=== PATIENT | female | born 1950 | race Asian ===

== ENCOUNTER 2017-02-03 11:04 | Emergency (ER) | payer BC ==
[~2017-02-03] VITALS: Wt 52.5 kg
[~2017-02-03 11:04] MED LIST: IBUPROFEN; XANAX
[2017-02-03] MEDS ORDERED: LIDOCAINE/MYLANTA 40 ML BTL PO STA (11:18)
[2017-02-03] MEDS ORDERED: ASPIRIN 325 MG TAB PO STA (11:18)
[2017-02-03] MEDS ORDERED: ONDANSETRON 4 MG INJ IV STA (11:25)
[2017-02-03 11:46] LABS: BASOPHILS % 0.7 % (0.0-2.0); EOSINOPHILS % 0.7 % (0.0-7.0); HEMATOCRIT 39.9 % (37.0-47.0); HEMOGLOBIN 13.8 g/dl (12.0-16.0); LYMPHOCYTES # 1.3 10^3/ul (0.8-2.9); LYMPHOCYTES % 28.3 % (15.0-51.0); MEAN CORPUSCULAR HEMOGLOBIN 30.9 pg (29.0-33.0); MEAN CORPUSCULAR HGB CONC 34.6 g/dl (32.0-37.0); MEAN CORPUSCULAR VOLUME 89.5 fl (82.0-101.0); MEAN PLATELET VOLUME 9.9 fl (7.4-10.4); MONOCYTE # 0.2 10^3/ul (0.3-0.9); MONOCYTES % 5.1 % (0.0-11.0); NEUTROPHIL # 2.9 10^3/ul (1.6-7.5); PLATELET COUNT 214 10^3/UL (140-415); RED BLOOD COUNT 4.46 10^6/ul (4.20-5.40); RED CELL DISTRIBUTION WIDTH 11.7 % (11.5-14.5); WHITE BLOOD COUNT 4.5 10^3/ul (4.8-10.8)
--- NOTE | 2017-02-03 11:47 | RADRPT ---
PROCEDURE: XR Chest. CLINICAL INDICATION: Chest pain. TECHNIQUE: Single frontal view of the chest was obtained. COMPARISON: None FINDINGS: Monitoring electrodes are projecting across the chest. There are degenerative osteophytes in the th oracic spine. The heart is enlarged. The cardiomediastinal silhouette and hilar structures are nor mal. The pulmonary vasculature is normal. There is a left-sided aorta. There is a plate-like densit y in the left mid lung field. No acute infiltrate is identified. The costophrenic angles are corinna l. IMPRESSION: 1. Plate-like atelectasis or scarring lateral to the left hilum. 2. Cardiomegaly. 3. Spondylosis of the thoracic spine. RPTAT:AAJJ Physician Trinh Date Time Electronically viewed and signed by Rakesh Lockwood Physician on 02/03/2017 11:47 LAURA/
--- NOTE | 2017-02-03 11:50 | ERD ---
ER Documentation Chief Complaint Date/Time DATE: 02/03/17 TIME: 11:48 Chief Complaint INTERMITTENT CHEST PAIN FOR FEW MONTHS. NO SOB. NO N.V HPI This 66-year-old female presents to the ER stating she has had left-sided chest pain for the last few months. It is a sharp pain. She denies shortness of breath nausea and vomiting. There is no radiation of the pain. ROS All systems reviewed and are negative except as per history of present illness. Medications Home Meds Reported Medications [Ibuprofen] No Conflict Check 09/08/10 [Xanax] No Conflict Check 09/08/10 Allergies Allergies: Coded Allergies: No Known Allergy (Verified Allergy, Mild, 09/08/10) PMhx/Soc History of Surgery: No Anesthesia Reaction: No Hx Neurological Disorder: Yes (ANXIETY) Hx Respiratory Disorders: No Hx Cardiac Disorders: No Hx Psychiatric Problems: No Hx Miscellaneous Medical Probl: No Hx Alcohol Use: No Hx Substance Use: No Hx Tobacco Use: No Smoking Status: Never smoker Physical Exam Vitals Vital Signs Date Time Temp Pulse Resp B/P Pulse Ox O2 Delivery O2 Flow Rate FiO2 02/03/17 11:36 56 18 128/75 99 Room Air 02/03/17 11:06 98.6 64 20 128/74 99 Physical Exam Const: [] No distress Head: Atraumatic Eyes: Normal Conjunctiva ENT: Normal External Ears, Nose and Mouth. Neck: Full range of motion..~ No meningismus. Resp: Clear to auscultation bilaterally Cardio: Regular mild bradycardia, no murmurs Abd: Soft, non tender, non distended. Normal bowel sounds Skin: No petechiae or rashes Ext: No cyanosis, or edema Neur: Awake and alert Psych: Normal Mood and Affect Result Diagram: 02/03/17 1130 02/03/17 1130 Results 24 hrs Laboratory Tests Test 02/03/17 11:30 White Blood Count 4.510^3/ul Red Blood Count 4.4610^6/ul Hemoglobin 13.8g/dl Hematocrit 39.9% Mean Corpuscular Volume 89.5fl Mean Corpuscular Hemoglobin 30.9pg Mean Corpuscular Hemoglobin Concent 34.6g/dl Red Cell Distribution Width 11.7% Platelet Count 61529^3/UL Mean Platelet Volume 9.9fl Neutrophils % 65.0% Lymphocytes % 28.3% Monocytes % 5.1% Eosinophils % 0.7% Basophils % 0.7% Nucleated Red Blood Cells % 0.0/100WBC Neutrophils # 2.910^3/ul Lymphocytes # 1.310^3/ul Monocytes # 0.210^3/ul Eosinophils # 0.010^3/ul Basophils # 0.010^3/ul Nucleated Red Blood Cells # 0.010^3/ul Prothrombin Time 12.4Sec Prothrombin Time Ratio 1.0 INR International Normalized Ratio 0.92 Activated Partial Thromboplast Time 27.7Sec Sodium Level 144mmol/L Potassium Level 4.0mmol/L Chloride Level 102mmol/L Carbon Dioxide Level 28mmol/L Anion Gap 18 Blood Urea Nitrogen 13mg/dl Creatinine 0.67mg/dl Glucose Level 88mg/dl Calcium Level 9.1mg/dl Troponin I < 0.012ng/ml Current Medications Medications (Trade) Dose Ordered Sig/Trevor Route PRN Reason Start Time Stop Time Status Last Admin Dose Admin Aspirin (Aspirin) 325 mg ONCE STAT PO 02/03/17 11:18 02/03/17 11:19 DC 02/03/17 11:44 Miscellaneous Medication (Gi Cocktail (2)) 40 ml ONCE STAT PO 02/03/17 11:18 02/03/17 11:19 DC 02/03/17 11:44 Ondansetron HCl (Zofran Inj) 4 mg ONCE STAT IV 02/03/17 11:25 02/03/17 11:26 DC 02/03/17 11:44 Ketorolac Tromethamine (Toradol) 30 mg ONCE STAT IV 02/03/17 12:21 02/03/17 12:24 DC Procedures/MDM Atypical chest pain and 66-year-old female with no signs of cardiac ischemia. During the course she did mention that she also has a right upper neck muscle spasm is been going on for some time. She is initially given a GI cocktail which did decrease her chest pain somewhat. She was then given Toradol which further alleviated the pain. Is possibly a musculoskeletal cause. She was also given 325 mg aspirin. Going to discharge her with instructions to follow- up with primary care doctor in obtain an outpatient echocardiogram. I am discharging her with Zantac and naproxen. Return precautions to ER. quality assurance monitor interpretation: Normal sinus rhythm/sinus bradycardia without arrhythmia EKG interpretation: Sinus bradycardia rate of 58, indeterminate axis, no ST or T -wave changes concerning for acute ischemia. Chest x-ray interpretation: I see no acute process. I see no pneumothorax, no fractures, no pulmonary edema, no infiltrates. Departure Diagnosis: Primary Impression: Chest pain Additional Impression: Neck muscle spasm Condition: Stable MARIN CURIEL DO Feb 03, 2017 11:50
[2017-02-03 12:07] LABS: ANION GAP 18 (8-16); BLOOD UREA NITROGEN 13 mg/dl (7-20); CALCIUM 9.1 mg/dl (8.4-10.2); CARBON DIOXIDE 28 mmol/L (21-31); CHLORIDE 102 mmol/L (97-110); CREATININE 0.67 mg/dl (0.44-1.00); GLUCOSE 88 mg/dl (70-220); SODIUM 144 mmol/L (135-144)
[2017-02-03 12:09] LABS: INR 0.92; PROTIME 12.4 Sec (12.2-14.2)
[2017-02-03 12:10] LABS: PARTIAL THROMBOPLASTIN TIME 27.7 Sec (25.0-35.0)
[2017-02-03 12:21] LABS: TROPONIN-I < 0.012 ng/ml (0.00-0.12)
[2017-02-03] MEDS ORDERED: KETOROLAC 30 MG INJ IV STA (12:21)
[2017-02-03] MEDS ORDERED: RANI150T9 PO (12:50)
[2017-02-03] MEDS ORDERED: NAPR-685 PO (12:50)
[2017-02-03] MEDS ORDERED: POLY17PO6 PO (13:27)
[2017-02-03] MEDS ORDERED: DIAZ-90 PO (13:33)
[2017-02-03 13:36] VITALS: BP 136/75; PULSE 55; RESP 14
== END 2017-02-03 13:42 | disposition home or self-care (01) ==
LOC: E/R 11:04
DX: R07.9 Chest pain, unspecified (principal); M62.838 Other muscle spasm; R40.2142 Coma scale, eyes open, spontaneous, at arrival to emergency department; R40.2252 Coma scale, best verbal response, oriented, at arrival to emergency department; R40.2362 Coma scale, best motor response, obeys commands, at arrival to emergency department
CPT/HCPCS: 71010; 80048; 84484; 85025; 85610; 85730; 93005; 96374; 96375; 99285; J1885; J2405

== ENCOUNTER 2017-12-19 05:44 | Observation (INO) | END 2017-12-20 18:45 | disposition home or self-care (01) ==

== ENCOUNTER 2018-12-26 18:40 | Emergency (ER) | payer MEDICARE ==
[~2018-12-26] VITALS: Ht 154.9 cm; Wt 53.5 kg
[~2018-12-26 18:40] MED LIST changes: +ASPI-831 PO; -IBUPROFEN; -XANAX; +ZOLP5TAB PO
[2018-12-26 18:58] VITALS: Ht 154.9 cm; Wt 53.5 kg
--- NOTE | 2018-12-26 19:51 | ERD ---
ER Documentation Chief Complaint Chief Complaint RLQ AP X 1 DAY AND DYSURIA X 1 DAY HPI 68-year-old female with no significant prior medical history presents the ED complaining of 1 day history of right greater than left lower quadrant pain with mild dysuria but no hematuria or flank pain. Pain is moderate, sharp and achy, nonradiating. No exacerbating or relieving factors. Denies nausea, vomiting, diarrhea or constipation. No chest pain or palpitations. No shortness of breath or cough. No fevers or chills. ROS All systems reviewed and are negative except as per history of present illness. Medications Home Meds Active Scripts Tamsulosin Hcl* (Flomax*) 0.4 Mg Cap.er.24h, 0.4 MG PO DAILY for 7 Days, CAP Prov:CINDI SHAW MD 12/26/18 Ibuprofen* (Motrin*) 600 Mg Tab, 600 MG PO Q6 PRN for PAIN LEVEL 1-5, #20 TAB Prov:CINDI SHAW MD 12/26/18 Tramadol HCl (Tramadol HCl) 50 Mg Tablet, 50 MG PO Q6 PRN for PAIN LEVEL 6-10, #12 TAB Prov:CINDI SHAW MD 12/26/18 Cephalexin* (Keflex*) 500 Mg Capsule, 500 MG PO QID for 7 Days, CAP Prov:CINDI SHAW MD 12/26/18 Zolpidem Tartrate (Ambien Anil) 5 Mg Tablet, 5 MG PO QHS PRN for INSOMNIA for 30 Days, TAB Prov:ANA CHINCHILLA 12/20/17 Aspirin (Aspirin) 81 Mg Chew, 81 MG PO DAILY for 30 Days, TAB Prov:ANA CHINCHILLA 12/20/17 Allergies Allergies: Coded Allergies: No Known Allergy (Verified , 12/19/17) PMhx/Soc History of Surgery: Yes (30 years ago had tubal ligation) Anesthesia Reaction: No Hx Neurological Disorder: No Hx Respiratory Disorders: No Hx Cardiac Disorders: Yes (Hypertension) Hx Psychiatric Problems: No Hx Miscellaneous Medical Probl: Yes (Hyperlipidemia but not on medications) Hx Alcohol Use: No Hx Substance Use: No Hx Tobacco Use: No Smoking Status: Never smoker FmHx No stroke or cancer Physical Exam Vitals Temp: 98.3. Pulse: 60. Respirations: 18. Blood pressure 127/70. O2 saturation 90% on room air. Physical Exam Const: Moderate distress due to pain Head: Atraumatic Eyes: Normal Conjunctiva ENT: Normal External Ears, Nose and Mouth. Neck: Full range of motion. Nontender. Resp: Clear to auscultation bilaterally Cardio: Regular rate and rhythm, no murmurs Abd: Soft, non tender, non distended. No rebound or guarding. No masses or abnormal pulsations. Normal bowel sounds Skin: No petechiae or rashes Back: No midline or CVA tenderness Ext: No cyanosis, or edema Neur: Awake and alert Psych: Anxious but not depressed. Results 24 hrs Laboratory Tests Test 12/26/18 19:47 12/26/18 19:55 12/26/18 20:03 Bedside Urine pH (LAB) 7.5 Bedside Urine Protein (LAB) Negative Bedside Urine Glucose (UA) Negative Bedside Urine Ketones (LAB) Negative Bedside Urine Blood 1+ Bedside Urine Nitrite (LAB) Negative Bedside Urine Leukocyte Esterase Trace (L Urine Color STRAW Urine Clarity CLEAR Urine pH 7.0 Urine Specific [place]vas 1.015 Urine Ketones NEGATIVE mg/dL Urine Nitrite NEGATIVE mg/dL Urine Bilirubin NEGATIVE mg/dL Urine Urobilinogen NEGATIVE mg/dL Urine Leukocyte Esterase NEGATIVE [place]/ul Urine Microscopic RBC 30 /HPF Urine Microscopic WBC 7 /HPF Urine Hemoglobin 2+ mg/dL Urine Glucose NEGATIVE mg/dL Urine Total Protein NEGATIVE mg/dl White Blood Count 5.0 10^3/ul Red Blood Count 4.13 10^6/ul Hemoglobin 12.3 g/dl Hematocrit 36.2 % Mean Corpuscular Volume 87.7 fl Mean Corpuscular Hemoglobin 29.8 pg Mean Corpuscular 34.0 g/dl Hemoglobin Concent Red Cell Distribution Width 12.0 % Platelet Count 190 10^3/UL Mean Platelet Volume 10.7 fl Immature Granulocytes % 0.200 % Neutrophils % 52.1 % Lymphocytes % 38.8 % Monocytes % 7.7 % Eosinophils % 0.6 % Basophils % 0.6 % Nucleated Red Blood Cells % 0.0 /100WBC Immature Granulocytes # 0.010 10^3/ul Neutrophils # 2.6 10^3/ul Lymphocytes # 1.9 10^3/ul Monocytes # 0.4 10^3/ul Eosinophils # 0.0 10^3/ul Basophils # 0.0 10^3/ul Nucleated Red Blood Cells # 0.0 10^3/ul Sodium Level 141 mmol/L Potassium Level 4.0 mmol/L Chloride Level 108 mmol/L Carbon Dioxide Level 27 mmol/L Anion Gap 6 Blood Urea Nitrogen 23 mg/dl Creatinine 0.69 mg/dl Est Glomerular Filtrat > 60 mL/min Rate mL/min Glucose Level 105 mg/dl Calcium Level 8.6 mg/dl Current Medications Medications Dose Sig/Trevor Start Time Status Last (Trade) Ordered Route PRN Stop Time Admin Dose Reason Admin Sodium 500 ml @ Q1H STAT 12/26/18 DC 12/26/18 Chloride 500 mls/hr IV 19:56 20:09 12/26/18 20:55 Ketorolac 15 mg ONCE STAT 12/26/18 DC 12/26/18 Tromethamine IV 19:56 20:09 (Toradol) 12/26/18 19:58 Procedures/MDM DOCUMENTS REVIEWED: ED nurse, prior ED and hospital records. Recent admission for chest pain. IMAGING: PROCEDURE: CT abdomen and pelvis without contrast. CLINICAL INDICATION: Abdominal Pain TECHNIQUE: CT scan of the abdomen and pelvis without oral contrast was performed and is reconstructed at 2.5 mm contiguous axial intervals from the dome of the diaphragm to the inferior pubic rami.. The patient was scanned without intravenous contrast. Sagittal and coronal reformatted images were obtained from the axial source images. The calculated radiation dose measures 286 mGy centimeters. The CTDI measures 5.7 mGy. Individualized dose optimization technique was used for the performance of this exam. This included 1. Automated exposure control. 2. Adjustment of the mA and / or kV according to the patient's size. 3. Use of iterative reconstructed technique. DICOM images are available. COMPARISON: None. FINDINGS: The lung bases are clear of any infiltrate or nodule. No effusion is seen. The liver is of normal size and contour with no mass or ductal dilatation. There is fatty infiltration. Focal sparing is seen adjacent to the gallbladder. No gallstones are visualized. No splenic, adrenal or pancreatic abnormalities present. Kidneys are of normal size and contour. No mass Is seen. There is a 3 mm nonobstructing stone in the midpole of the right kidney. Noted is mild left hydroureter nephrosis with a 3 mm stone at the orifice of the ureterovesicular junction. No right ureteral stone is present.. No bladder mass is present. Uterus and ovaries appear normal. There is no aneurysm. No adenopathy is present. No bowel mass or obstruction is present. The appendix is normal. No phlegmon, ascites or pneumoperitoneum is visualized. The osseous structures are intact. IMPRESSION: Mild left hydroureter nephrosis with 3 mm calculus orifice ureterovesicular junction. 3 mm nonobstructing right renal calculus. Fatty liver with focal sparing adjacent gallbladder. No evidence of diverticulitis or appendicitis. .Miguel Ángel Lozano MD, MD Date Time Electronically viewed and signed by .Miguel Ángel Lozano MD, MD on 12/26/2018 20:42 .A/ REEXAMINATION/REEVALUATION: Time: 22:50. Doing well. Asymptomatic. MEDICAL DECISION MAKIN-year-old female with no significant prior medical history presents the ED complaining of 1 day history of right greater than left lower quadrant pain with mild dysuria but no hematuria or flank pain. CBC negative for leukocytosis or anemia. Chemistry reveals mildly elevated BUN normal creatinine likely secondary to dehydration but no electrolyte abnormalities or hyperglycemia. Urinalysis significant for microscopic hematuria. CT of the abdomen and pelvis without intravenous contrast to evaluate for an acute intra-abdominal process including but not limited to appendicitis, diverticulitis, bowel obstruction, obstructive uropathy, biliary disease, pancreatitis, abdominal aortic aneurysm and neoplasm reveals 3 mm calculus at left UVJ and a right nonobstructing renal calculus. Pain resolved with intravenous analgesics and antiemetics. Possible urinary tract infection will be treated with Keflex pending cultures. No signs of pyelonephritis. Abdominal exam is otherwise benign without tenderness, rebound, guarding or signs of peritonitis. Stable for discharge with precautionary instructions, appropriate analgesics and outpatient urology follow-up as counseled. Counseled patient regarding diagnostic workup, diagnosis and need for followup. Understands to return to ED if symptoms recur, worsen or any other concerns. Departure Diagnosis: Primary Impression: Acute bilateral lower abdominal pain Additional Impressions: Left ureteral calculus Right nephrolithiasis Condition: Stable (Improved) CINDI SHAW MD Dec 26, 2018 19:50
[2018-12-26] MEDS ORDERED: SOD CHLORIDE 0.9% 500 ML IV STA (19:56)
[2018-12-26] MEDS ORDERED: KETOROLAC 15 MG INJ IV STA (19:56)
[2018-12-26] MEDS ORDERED: TRAM50TA2 PO (22:58)
[2018-12-26] MEDS ORDERED: IBUP-1542 PO (22:58)
[2018-12-26] MEDS ORDERED: TAMS-14 PO (22:58)
[2018-12-26] MEDS ORDERED: CEPH-443 PO (22:58)
[2018-12-26 23:14] VITALS: BP 116/60; PULSE 52; RESP 16
== END 2018-12-26 23:14 | disposition home or self-care (01) ==
LOC: E/R 18:40
DX: N20.2 Calculus of kidney with calculus of ureter (principal)
CPT/HCPCS: 36415; 74176; 80048; 81001; 85025; 87086; 96374; 99285; J1885; J7040; 81003